=== PATIENT | female | born 1990 ===

== ENCOUNTER 2025-02-08 14:23 | Observation (INO) | payer BC, SELFPAY ==
[2025-02-08 14:25] VITALS: BP 101/56; BMI 31.9
[2025-02-08 15:02] LABS: Hematocrit 35.8 % (37.0-47.0); Hemoglobin 12.1 g/dL (12.0-16.0); Mean Corp Hgb Conc. 33.8 g/dL (33.0-37.0); Mean Corpuscular Volume 91.3 fL (81.0-99.0); Nucleated Red Blood Cells % 0 %; Platelet Count 178 10^3/uL (130-400); Red Cell Dist. Width 12.8 % (11.5-14.5)
[2025-02-08 15:12] LABS: INR 0.99; PT 13.4 Sec (11.4-14.6)
[2025-02-08 15:13] LABS: APTT 25.5 Sec (23.4-35.0)
[2025-02-08] MEDS: CELESTONE SOLUSPAN 2 MG IM (15:26)
[2025-02-08 15:36] LABS: Fibrinogen 394 MG/DL (199-459)
[2025-02-08 16:24] LABS: Urine Character Clear (Clear)
[2025-02-08 16:31] LABS: Urine Squamous Cell 0-2 /LPF (Few)
[2025-02-08 16:32] LABS: Urine Red Blood Cell 60-70 /HPF (0-2)
[2025-02-08] MEDS: MIRALAX 17 GRAMS PO (18:47)
[2025-02-08] MEDS: LR 1000 IV (19:08)
[2025-02-09] MEDS: COLACE 100 MG PO (10:29)
[2025-02-09] MEDS: TYLENOL 650 MG PO (11:11)
[2025-02-09] MEDS: CELESTONE SOLUSPAN 2 MG IM (14:58)
== END 2025-02-09 15:35 | disposition home or self-care (01) ==
LOC: LDRP 14:23
PROVIDERS: ADMITTING PHYSICIAN Student in an Organized Health Care Education/Training Program
DX: O46.93 Antepartum hemorrhage, unspecified, third trimester (principal); Z3A.29 29 weeks gestation of pregnancy; K59.00 Constipation, unspecified; O99.343 Other mental disorders complicating pregnancy, third trimester; F41.9 Anxiety disorder, unspecified; F42.9 Obsessive-compulsive disorder, unspecified; O99.213 Obesity complicating pregnancy, third trimester; Z14.1 Cystic fibrosis carrier; Z83.3 Family history of diabetes mellitus; Z82.49 Family history of ischemic heart disease and other diseases of the circulatory system; Z80.3 Family history of malignant neoplasm of breast
CPT/HCPCS: 76815; 81003; 81015; 85025; 85384; 85460; 85610; 85730; 86850; 86900; 86901; 87086; G0378

== ENCOUNTER 2025-04-16 10:23 | Inpatient (IN) | payer BC, SELFPAY ==
[2025-04-16 10:26] VITALS: BP 118/81; BMI 37.2
[2025-04-16] MEDS: LR 1000 IV ×2 (10:45→23:12)
[2025-04-16 11:42] LABS: Hematocrit 39.9 % (37.0-47.0); Hemoglobin 13.7 g/dL (12.0-16.0); Mean Corp Hgb Conc. 34.3 g/dL (33.0-37.0); Mean Corpuscular Volume 92.1 fL (81.0-99.0); Nucleated Red Blood Cells % 0 %; Platelet Count 148 10^3/uL (130-400); Red Cell Dist. Width 12.7 % (11.5-14.5)
[2025-04-16] MEDS: PITOCIN 30 UNITS/NSS 500 ML IV (12:15)
[2025-04-16] MEDS: FENTANYL/BUPIVACAINE 100 EPIDURAL ×2 (15:06→23:08)
[2025-04-16] MEDS: SUBLIMAZE 100 MCG EPIDURAL (15:06)
[2025-04-16] MEDS: ZOFRAN 4 MG IV (20:54)
[2025-04-16] MEDS: PRENATAL PLUS 1 TABLET PO (22:48)
[2025-04-16] MEDS: PROZAC 60 MG PO (22:48)
[2025-04-17] MEDS: PITOCIN 30 UNITS/NSS 500 ML IV (00:52)
[2025-04-17] MEDS: MOTRIN 600 MG PO ×3 (03:36→18:26)
[2025-04-17] MEDS: TYLENOL 650 MG PO ×3 (06:06→18:26)
[2025-04-17 06:13] LABS: Hematocrit 38.1 % (37.0-47.0); Hemoglobin 12.6 g/dL (12.0-16.0)
[2025-04-17] MEDS: COLACE 100 MG PO ×2 (07:37→21:09)
[2025-04-17] MEDS: PRENATAL PLUS 1 TABLET PO (21:09)
[2025-04-17] MEDS: PROZAC 60 MG PO (21:09)
[2025-04-18] MEDS: TYLENOL 650 MG PO ×3 (02:08→16:25)
[2025-04-18] MEDS: MOTRIN 600 MG PO ×3 (02:08→16:26)
[2025-04-18] MEDS: COLACE 100 MG PO (08:31)
== END 2025-04-18 19:00 | disposition home or self-care (01) | DRG 807 ==
LOC: LDRP 10:23
PROVIDERS: ADMITTING PHYSICIAN Student in an Organized Health Care Education/Training Program
PROC: 10E0XZZ Delivery of Products of Conception, External Approach (ICD-10-PCS; 2025-04-17)
PROC: 0KQM0ZZ Repair Perineum Muscle, Open Approach (ICD-10-PCS; 2025-04-17)
DX: O42.02 Full-term premature rupture of membranes, onset of labor within 24 hours of rupture (principal); Z37.0 Single live birth; Z3A.39 39 weeks gestation of pregnancy; O70.1 Second degree perineal laceration during delivery; Z14.1 Cystic fibrosis carrier; O99.344 Other mental disorders complicating childbirth; F41.9 Anxiety disorder, unspecified; F42.9 Obsessive-compulsive disorder, unspecified; O99.214 Obesity complicating childbirth; O76 Abnormality in fetal heart rate and rhythm complicating labor and delivery; Z80.3 Family history of malignant neoplasm of breast; Z83.3 Family history of diabetes mellitus; Z82.49 Family history of ischemic heart disease and other diseases of the circulatory system
CPT/HCPCS: 36415; 85014; 85018; 85025; 86780; 86850; 86900; 86901

== ENCOUNTER 2025-04-21 19:51 | Emergency (ER) | payer BC, SELFPAY ==
[2025-04-21 19:53] VITALS: BP 114/80
--- NOTE | 2025-04-21 22:30 | ED.GENMED ---
History of Present Illness
General
Chief Complaint: Anxiety
Source: patient, spouse and previous hospital records (Recent hospitalization for vaginal delivery)
Exam Limitations: none
Time Seen by Provider: 04/21/25 22:06
Nursing documentation reviewed up to this point in time: agreed with
History of Present Illness
History of Present Illness:
HISTORY OF PRESENT ILLNESS
The patient is a 35-year-old female, who recently gave on April 16. She delivered vaginally and required some stitches post-delivery. The patient has a history of anxiety and depression for which she has been taking fluoxetine, 60 mg
daily throughout her . However, she reports experiencing increased anxiety since delivery, especially over the past 24 hours and feeling particularly anxious without a specific cause. The patient is not nursing. She expresses concern about
her mood, attributing some of her feelings to hormonal changes . The patient describes a sense of relief knowing she has support at home, including her mother and . She previously used alprazolam as needed, particularly for
travel-related anxiety, and has done well on small doses.
She adamantly denies suicidal nor homicidal ideation. Denies feelings of wanting to hurt her . She denies hallucinations.
No history of alcohol or drug use.
Since arrival to the ED she was able to take a nap and is feeling markedly improved.
She is worried that her anxiety/panic feelings will return however and they seem to worsen when she hears the baby cry.
She reached out to her [facility] and was recommended to come to the ED for evaluation.
Currently on fluoxetine 60 mg daily. Prior to her pregnancies she had been maintained on 80 mg daily.
Past History
Past History
ED Past Medical History: Psychiatric (Anxiety and depression)
ED Past Surgical History: Other (Breast reduction)
Social History
Tobacco: Non-smoker
Alcohol: None
Drug: None
Personal:
Living: with family
Family History
Family History: Other (Noncontributory)
Phy Exam
Physical Exam
Physical Exam:
GENERAL: 35-year-old woman appears her stated age, awake and alert, pleasant, appears in no acute distress. is accompanying.
EYE: anicteric
NECK: Supple, nontender, no meningismus, no significant adenopathy.
ENT: oral mucosa is moist. No rhinorrhea.
CARDIAC: Regular rate and rhythm. no murmur.
LUNGS: Clear breath sounds bilaterally, no acute respiratory distress, no wheezes/rales/rhonchi
ABDOMEN: Soft, nondistended, without focal tenderness, normoactive BS.
NEUROLOGICAL: Alert and oriented x3, no focal neuro deficits. Gait is garcia and steady.
SKIN: Warm and dry, normal color, skin intact. No rash.
MUSCULOSKELETAL: No C/C/E. peripheral pulses are full and equal b/l. No palpable tenderness.
PSYCH: Intermittently mildly anxious. Normal speech pattern. Normal thought processes. Fair insight and judgment. Adamantly denies suicidal thoughts or plan. Denies thoughts of hurting her . No hallucinations.
Course
Orders/Labs/Results
Orders:
Orders
04/21/25 22:29
Lorazepam [Ativan] 1 mg PO NOW STA
Vital Signs
Initial and Last Documented VS:
Initial Vital Signs
Temp Pulse Resp BP Pulse Ox
98.4 F 64 16 114/80 98
04/21/25 19:53 04/21/25 19:53 04/21/25 19:53 04/21/25 19:53 04/21/25 19:53
Last Documented Vital Signs
Temp Pulse Resp BP Pulse Ox
98.4 F 64 16 114/80 98
04/21/25 19:53 04/21/25 19:53 04/21/25 19:53 04/21/25 19:53 04/21/25 19:53
MDM/Problems Addressed
Differential Diagnosis Includes:
DIFFERENTIAL DIAGNOSIS
The Differential Diagnosis includes, in no particular order and is not limited to:
1. Anxiety Disorder
2. Depression
3. Adjustment Disorder with Anxiety
4. Generalized Anxiety Disorder
5. Mood Disorder due to hormonal imbalance
6. Stress Response due to childbirth
7. Acute Stress Reaction
8. Hormonal Changes
9. Drug-induced mood disorder
10. Thyroid dysfunction affecting mood (though not discussed, for potential screening purposes)
MDM/Problems Addressed:
Acute anxiety/episodes of panic with history of anxiety/depression.
5 days vaginal delivery.
History and exam consistent with acute exacerbation of anxiety disorder during early post .
Adamantly denies suicidal thoughts or plan nor thoughts of harming her . No hallucinations. Normal thought processes. Fair insight and judgment.
She has excellent support system at home including her and her mother recently arrived earlier today from [facility] and is planning to spend time with the patient.
Will give a dose of Ativan now for anxiety/panic
Recommend increasing fluoxetine from 60 back to 80 mg daily which she had been maintained on prior to her .
Will also prescribe a short course of lorazepam for as needed use.
Patient is interested in outpatient counseling. Will contact [facility] crisis for assistance with providing outpatient counseling resources
Recommend prompt follow-up with PCP as well as [employer] [facility].
Return precautions discussed.
Chronic conditions affecting care: Psychiatric illness
Acute Exacerbation and/or Progression of Chronic Illness: Psychiatric illness
*Pulse Oximetry
SaO2: 98
Oxygen Mode of Delivery: Room air
Patient hypoxic: no
*Critical Care Note
Total Time (30-74mins, 75-104mins- exclusive of procedures): Not Applicable
ED Attending Note
-
Portions of this chart may have been created with voice recognition software.� Occasional wrong word or��sound alike� substitutions may have occurred due to the inherent limitations of voice recognition software.
Discharge Plan
Departure
Patient Disposition: Home (Routine Discharge)
Date of Disposition: 04/21/25
Time of Disposition: 22:45
Patient with high blood pressure during this ER visit?: No
Condition: Good
Discharge Problem:
Anxiety disorder with acute exacerbation, anxiety
Instructions: Generalized Anxiety Disorder (DC), Depression during and after - ED (DC), Coping while caring for a
Prescriptions:
New
lorazepam [Ativan] 0.5 mg tablet
0.5 mg PO BID PRN (Reason: anxiety) Qty: 14 0RF
fluoxetine 20 mg capsule
80 mg PO DAILY Qty: 120 1RF
No Action
prenat.vits,puma,ftl-[id number]-[id number] Tablet
1 tab PO HS
fluoxetine 60 mg Tablet
60 mg PO HS
ibuprofen 600 mg Tablet
600 mg PO Q6HPRN PRN (Reason: moderate pain/cramps) Qty: 30 0RF
acetaminophen 325 mg Tablet
650 mg PO Q4HPRN PRN (Reason: mild pain) Qty: 30 0RF
Referrals:
Riddhi Cano PA-C [Family Provider] - Call in 1-3 days for appt
Interventions
Interventions:
*General Assessment Last Done: 04/21/25 22:03
*Neglect/Abuse Screening Last Done: 04/21/25 19:53
*ED COVID-19 Vaccine History Last Done: 04/21/25 22:03
*ED Influenza Vaccine History Last Done: 04/21/25 22:03
[facility] Fall Risk Assessment Tool Last Done: 04/21/25 22:03
*Risk Screen - Suicide (C-SSRS) Last Done: 04/21/25 19:56
ED-Psychological Assessment Last Done: 04/21/25 22:03
Discharge Date and Time
Print Language: WOLOF
[2025-04-21] MEDS: ATIVAN 1 MG PO (22:46)
== END 2025-04-21 22:52 | disposition home or self-care (01) ==
LOC: EMR 19:51
PROVIDERS: EMERGENCY PHYSICIAN Emergency Medicine; FAMILY PHYSICIAN Physician Assistant
DX: O99.345 Other mental disorders complicating the puerperium (principal); F41.9 Anxiety disorder, unspecified; Z79.899 Other long term (current) drug therapy
CPT/HCPCS: 99282